=== PATIENT | male | born 1980 ===

== ENCOUNTER 2019-12-28 11:45 | Inpatient (IN) | payer OTHER ==
[~2019-12-28] VITALS: Ht 172.7 cm; Wt 77.1 kg
[2019-12-28] MEDS ORDERED: AMOXIC PO (13:25)
[2020-01-05] MEDS ORDERED: AMOX-CLAV 500-1 EACH (08:08)
[2020-01-09] MEDS ORDERED: AMOX1TAB5 PO (10:49)
[2020-01-09] MEDS ORDERED: KETO10TA2 PO (10:50)
[2020-01-09] MEDS ORDERED: LEVSIN/SL0.125 MG SL (10:50)
[2020-01-09] MEDS ORDERED: INTESTINEX680 M1 PO (10:51)
== END 2020-01-09 11:19 | disposition home or self-care (01) | DRG 331 ==
LOC: SURH 01-04 05:37 → O/R 01-04 05:37 → SURH 01-04 10:20
PROVIDERS: ADMIT Surgery; ATTEND Surgery
PROC: 0DBN4ZZ Excision of Sigmoid Colon, Percutaneous Endoscopic Approach (ICD-10-PCS; 2020-01-04)
PROC: 0DTP4ZZ Resection of Rectum, Percutaneous Endoscopic Approach (ICD-10-PCS; principal; 2020-01-04 10:30)
DX: K57.20 Diverticulitis of large intestine with perforation and abscess without bleeding (principal); D64.9 Anemia, unspecified